=== PATIENT | male | born 1945 | race Caucasian/White ===

== ENCOUNTER 2017-11-02 09:41 | Inpatient (IN) | payer OTHER ==
[~2017-11-02] VITALS: Ht 177.8 cm; Wt 60.3 kg
[2017-11-02 12:23] LABS: HEMATOCRIT 43.8 % (38.0-50.0); HEMOGLOBIN 15.7 G/DL (12.5-16.6); MCH 31.8 PG (29.0-34.0); MCHC 35.8 G/DL (30.0-36.0); MCV 88.8 FL (86-99); PLATELET COUNT 264 K/uL (156-360); RBC DIS.WIDTH-SD 42.4 % (39-53); RED BLOOD COUNT 4.93 M/uL (4.00-5.50); WHITE BLOOD COUNT 6.2 K/uL (4.1-10.2)
[2017-11-02 12:37] LABS: CHLORIDE 106 mEq/L (99-109); POTASSIUM 4.4 mEq/L (3.7-5.4); SODIUM 140 mEq/L (136-147)
[2017-11-02 12:39] LABS: GLUCOSE 102 mg/dL (70-99)
[2017-11-02 12:42] LABS: CREATININE 0.8 mg/dL (0.6-1.3); GFR ESTIMATE (CALCULATED) > 59 mL/min/ (58.99-99999)
[2017-11-02 12:43] LABS: UREA NITROGEN (BUN) 26 mg/dL (9-23)
[2017-11-02] MEDS ORDERED: MULTIVITAMIN1 EAC2 PO (15:13)
[2017-11-02] MEDS ORDERED: ADVIL200 MG PO (15:13)
[2017-11-02] MEDS ORDERED: CALCIUM 500 MG1 EACH PO (15:16)
[2017-11-02] MEDS ORDERED: VITAMIN B122500 MCG PO (15:16)
[2017-11-02 17:50] LABS: HDL CHOLESTEROL 52 MG/DL (Desirable>=40); LDL CHOLESTEROL 150 mg/dL (Desirable<100); NON-HDL CHOLESTEROL 185 mg/dL (Desirable<160); TOTAL CHOLESTEROL 237 mg/dL (Desirable<200); TRIGLYCERIDES 177 MG/DL (Normal: <150)
[2017-11-02 19:02] VITALS: BP 160/98
[2017-11-02 23:51] VITALS: BP 111/66
[2017-11-03 03:54] VITALS: BP 112/71
[2017-11-03 08:29] VITALS: BP 123/77
[2017-11-03 11:36] VITALS: BP 119/78
[2017-11-03] MEDS ORDERED: PRAVASTATIN SOD40 MG PO (12:13)
[2017-11-03] MEDS ORDERED: LISINOPRIL5 MG PO (12:13)
[2017-11-03] MEDS ORDERED: ASPIR-LOW81 MG PO (12:13)
[2017-11-04 10:03] LABS: HEMOGLOBIN A1c (GLYCOHEMOGLOB) 5.2 % (Below 5.7)
== END 2017-11-03 13:39 | disposition home or self-care (01) | DRG 65 ==
LOC: EME 09:41 → EDOF 14:03 → ENRESERV 14:24 → EDOF 14:24 → ENRESERV 14:35 → 5SOUTH 17:18
PROVIDERS: Family Medicine
DX: I63.9 Cerebral infarction, unspecified (principal); R29.810 Facial weakness; E78.5 Hyperlipidemia, unspecified; R20.0 Anesthesia of skin; I65.23 Occlusion and stenosis of bilateral carotid arteries; R42 Dizziness and giddiness; I73.9 Peripheral vascular disease, unspecified; Z79.82 Long term (current) use of aspirin; Z79.899 Other long term (current) drug therapy; Z68.1 Body mass index [BMI] 19.9 or less, adult; R03.0 Elevated blood-pressure reading, without diagnosis of hypertension
CPT/HCPCS: 70551; 71046; 80048; 80061; 83036; 85027; 93005; 93880; 99281; 99285; J1650

== ENCOUNTER → 2017-11-06 | Outpatient (CLI) | payer OTHER ==
[~2017-11-06] MED LIST: ADVIL200 MG PO; ASPIR-LOW81 MG PO; CALCIUM 500 MG1 EACH PO; LISINOPRIL5 MG PO; MULTIVITAMIN1 EAC2 PO; PRAVASTATIN SOD40 MG PO; VITAMIN B122500 MCG PO
== END | disposition home or self-care (01) ==
LOC: EKG 12:57
DX: I05.9 Rheumatic mitral valve disease, unspecified (principal); I06.9 Rheumatic aortic valve disease, unspecified; I05.1 Rheumatic mitral insufficiency; I27.20 Pulmonary hypertension, unspecified
CPT/HCPCS: 93306